=== PATIENT | male | born 1980 | race Caucasian/White ===

== ENCOUNTER 2024-01-19 10:47 | Emergency (ER) | payer SELFPAY ==
[2024-01-19] MEDS: Tetracaine HCl/PF 0.5% 4 ML Bottle EYEBOTH STA (11:29)
== END 2024-01-19 12:03 | disposition home or self-care (01) ==
LOC: MW.ED 10:47
DX: T15.02XA Foreign body in cornea, left eye, initial encounter (principal); Z88.0 Allergy status to penicillin; Z75.8 Other problems related to medical facilities and other health care; Z79.899 Other long term (current) drug therapy; X58.XXXA Exposure to other specified factors, initial encounter
CPT/HCPCS: 99283; J3490